=== PATIENT | female | born 1980 | race Caucasian/White ===

== ENCOUNTER 2016-09-16 22:39 | Emergency (ER) | payer BC ==
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
[~2016-09-16 22:39] MED LIST: CLARITIN10 MG PO; DERMOPLAST SPRA56 GM TOP; MOTRIN800 MG PO; PERCOCET 5-3251 EACH PO; PRENATAL 1+1)(P1 TAB PO; PRILOSEC20 M1 PO; PROVENTIL HFA6.7 GM INH; PROVENTIL OR V6.7 GM INH; WAL-ITIN10 MG PO
== END 2016-09-17 00:08 | disposition disaster alternative care site (69) ==
LOC: GACC 22:39
PROC: 2W3DX1Z Immobilization of Left Lower Arm using Splint (ICD-10-PCS; principal; 2016-09-17)
DX: S46.002A Unspecified injury of muscle(s) and tendon(s) of the rotator cuff of left shoulder, initial encounter (principal); S63.502A Unspecified sprain of left wrist, initial encounter; V00.121A Fall from non-in-line roller-skates, initial encounter